=== PATIENT | female | born 1995 | race Two or more races ===

== ENCOUNTER → 2019-02-27 | Emergency (ER) | payer OTHER ==
[~2019-02-27] VITALS: Ht 170.2 cm; Wt 58.1 kg
== END | disposition left against medical advice (07) ==
LOC: ER 02:27
DX: Z53.20 Procedure and treatment not carried out because of patient's decision for unspecified reasons (principal)

== ENCOUNTER 2021-08-27 23:08 | Emergency (ER) | payer OTHER ==
[~2021-08-27] VITALS: Ht 172.7 cm; Wt 56.7 kg
[2021-08-28] MEDS ORDERED: MEDROL8 MG PO (03:03)
[2021-08-28] MEDS ORDERED: ALBUTEROL2.5 MG/3 M IH (03:03)
== END 2021-08-28 03:16 ==
LOC: ER 23:08
DX: T55.1X1A Toxic effect of detergents, accidental (unintentional), initial encounter (principal); R06.02 Shortness of breath; R42 Dizziness and giddiness; Y92.098 Other place in other non-institutional residence as the place of occurrence of the external cause

== ENCOUNTER 2022-03-08 17:36 | Inpatient (IN) | payer OTHER ==
[~2022-03-08] VITALS: Ht 172.7 cm; Wt 58.5 kg
[~2022-03-08 17:36] MED LIST: ALBUTEROL2.5 MG/3 M IH; MEDROL8 MG PO
[2022-03-12] MEDS ORDERED: CLONAZEPAM0.5 MG PO (18:45)
[2022-03-12] MEDS ORDERED: EFFEXOR XR75 MG PO (18:46)
== END 2022-03-12 21:52 | disposition home or self-care (01) | DRG 882 ==
LOC: ER 17:36 → MEDI 03-09 14:03
PROVIDERS: ADMIT Internal Medicine; ATTEND Internal Medicine
PROC: 4A12X4Z Monitoring of Cardiac Electrical Activity, External Approach (ICD-10-PCS; principal; 2022-03-09)
PROC: BW28ZZZ Computerized Tomography (CT Scan) of Head (ICD-10-PCS; 2022-03-09)
PROC: B030Y0Z Magnetic Resonance Imaging (MRI) of Brain using Other Contrast, Unenhanced and Enhanced (ICD-10-PCS; 2022-03-09)
PROC: B030ZZZ Magnetic Resonance Imaging (MRI) of Brain (ICD-10-PCS; 2022-03-10)
DX: F45.0 Somatization disorder (principal); H53.8 Other visual disturbances; R20.0 Anesthesia of skin; R47.81 Slurred speech; F44.89 Other dissociative and conversion disorders; F41.1 Generalized anxiety disorder
CPT/HCPCS: 70544; 70545